=== PATIENT | male | born 1970 | race Two or more races ===

== ENCOUNTER 2019-10-01 19:44 | Emergency (ER) | payer BC ==
--- NOTE | 2019-10-01 20:27 | EDM.PDOC ---
ED HPI GENERAL MEDICAL PROBLEM - General Chief Complaint: Genitourinary Problem Stated Complaint: BLOOD IN URINE Time Seen by Provider: 10/01/19 19:54 Source of Information: Reports: Patient History Limitations: Reports: No Limitations - History of Present Illness INITIAL COMMENTS - FREE TEXT/NARRATIVE: Mr. Diez is a very pleasant 49-year-old man with no chronic medical issues, who states that he lives in [place], but is in this area for work. He states that he attempted to jump over 3 boxes between 13:00 and 15:00 yesterday afternoon, 09/30/2019. He states that he ran and jumped over them, but wound up doing the splits, striking his groin on the concrete floor. He states that he had immediate pain. He later went home, and states that he masturbated around 20:00 last night, finding blood in the semen. There was no pain, however , since then, he states that he has only been able to dribble a few drops of urine, and after he attempts to urinate, a small amount of blood emanates from the end of his penis. He has developed the sensation of bladder fullness. The patient states that he suffered a similar injury about 17 years ago. He saw his PCP, but no surgery was required. The patient's PCP is in [place]. The patient has not received an influenza vaccine this season, but is willing to receive one here. - Related Data Allergies Allergy/AdvReac Type Severity Reaction Status Date / Time No Known Allergies Allergy Verified 10/01/19 20:00 Home Meds: Home Meds Albuterol [Ventolin HFA] 1 puff INH Q4H PRN 10/01/19 [History] Past Medical History - Past Surgical History HEENT Surgical History: Reports: Oral Surgery (wisdom teeth extraction) Social & Family History - Family History Family Medical History: Noncontributory - Tobacco Use Smoking Status *Q: Current Some Day Smoker Tobacco Use Within Last Twelve Months: Smokeless Tobacco (Chews 1/3 can/day) Years of Tobacco use: 23 Packs/Tins Daily Comment: Down from 1 ppd - Caffeine Use Caffeine Use: Reports: None - Alcohol Use Alcohol Use History: Yes Alcohol Use Frequency: Rarely - Recreational Drug Use Recreational Drug Use: No - Living Situation & Occupation Living situation: Reports: , with Spouse (in [place]) 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 ED EXAM, RENAL/ - Physical Exam Exam: See Below Exam Limited By: No Limitations General Appearance: Alert, WD/WN, No Apparent Distress Eye Exam: Bilateral Eye: EOMI, Normal Inspection Ears: Normal External Exam, Hearing Grossly Normal Nose: Normal Inspection Throat/Mouth: Normal Inspection, Normal Lips, Normal Voice, No Airway Compromise Head: Atraumatic, Normocephalic Neck: Normal Inspection, Full Range of Motion Respiratory/Chest: No Respiratory Distress, Lungs Clear, Normal Breath Sounds, No Accessory Muscle Use Cardiovascular: Normal Peripheral Pulses, Regular Rate, Rhythm, No Edema, No Gallop, No JVD, No Murmur, No Rub GI/Abdominal: Normal Bowel Sounds, Soft, No Organomegaly, No Distention, No Abnormal Bruit, No Mass, Tender (suprapubic fullness, otherwise nontender) (Male) Exam: Deferred Rectal (Males) Exam: Deferred Back Exam: Normal Inspection, Full Range of Motion. No: CVA Tenderness (L), CVA Tenderness (R) Extremities: Normal Inspection, Normal Range of Motion, No Pedal Edema, Normal Capillary Refill Neurological: Alert, Oriented, Normal Cognition, No Motor/Sensory Deficits Psychiatric: Normal Affect Skin Exam: Warm, Dry, Intact, Normal Color, No Rash Course - Vital Signs Last Recorded V/S: Last Vital Signs Temp 36.9 C 10/01/19 19:56 Pulse 81 10/01/19 19:56 Resp 16 10/01/19 19:56 BP 139/93 H 10/01/19 19:56 Pulse Ox 98 10/01/19 19:56 - Orders/Labs/Meds Orders: Active Orders 24 hr Category Date Time Status Bladder Scan [RC] ASDIRECTED Care 10/01/19 20:21 Ordered UA W/MICROSCOPIC [URIN] Stat Lab 10/01/19 20:00 Ordered - Re-Assessments/Exams Free Text/Narrative Re-Assessment/Exam: 10/01/19 20:21 Given the patient's history, I'm concerned about a urethral tear. I have ordered a urinalysis, to be followed by a post-void bladder scan. 10/01/19 21:22 Notified by Linda GRAHAM that the patient was able to urinate about 50 mL of urine. His post-void bladder scan revealed 127 mL of urinary retention. The patient's urinalysis is daya/slightly cloudy in appearance. There is 3+ occult blood with 75-100 RBCs, leukocyte esterase negative with no WBCs, nitrate negative with few bacteria, and 0-5 squamous epithelial cells. 10/01/19 23:12 [facility] contacted at 22:29. Case then discussed with Dr. Maximilian Banda, Urologist at [facility], at 23:07. He agreed that the patient is likely suffering from a urethral injury. He stated that the catheter needs to be placed in order to allow the urethra to heal. He recommended that an experienced nurse attempt a single passage with a 16 [place] catheter. If she is successful, the patient follow-up with him in 2-3 days, however, if she is not, the patient will need to be transferred tonight for cystoscopy. 10/01/19 23:28 Notified by Jahaira GRAHAM that she was able to pass a catheter with no difficulty. The patient has been fitted with a leg bag. I will discharge him home, to follow -up with Dr. Banda in 2-3 days. Departure - Departure Time of Disposition: 23:30 Disposition: Home, Self-Care 01 Condition: Good Clinical Impression: Urethral injury - Discharge Information *PRESCRIPTION DRUG MONITORING PROGRAM REVIEWED*: Not Applicable *COPY OF PRESCRIPTION DRUG MONITORING REPORT IN PATIENT MAXIMUS: Not Applicable Referrals: Maximilian Banda MD [Ordering Only Provider] - Additional Instructions: You were seen in the emergency room after being unable to urinate following a groin injury. Workup in the ER included a urinalysis and a post-void bladder scan. Your urinalysis showed only blood, with no sign of an infection, and the postvoid bladder scan found 127 mL of retained urine. Based on your history, physical exam, and ER tests, you have most likely suffered an injury/tear to your urethra. The case was discussed with the [place] [facility]ist Dr. Maximilian Banda, who recommended that we place a Jeffrey catheter, which was done. Maintain the catheter and drain the bag as explained by your nurse. Make sure that the bag is below your body height when you sleep, so that urine does not backflow into your bladder. Follow-up with Dr. Banda at his office in [place] in 2-3 days. You will need to call to make an appointment. Make sure that the director of strategic marketing knows that this is a follow-up from the ER. If any other problems, please do not hesitate to return to the ER. Sepsis Event Note - Evaluation Sepsis Screening Result: No Definite Risk - Focused Exam Vital Signs: Vital Signs Temp Pulse Resp BP Pulse Ox 10/01/19 19:56 36.9 C 81 16 139/93 H 98 Date Exam was Performed: 10/01/19 Time Exam was Performed: 20:21 - My Orders Last 24 Hours: My Active Orders 10/01/19 20:00 UA W/MICROSCOPIC [URIN] Stat 10/01/19 20:21 Bladder Scan [RC] ASDIRECTED - Assessment/Plan Last 24 Hours: My Active Orders 10/01/19 20:00 UA W/MICROSCOPIC [URIN] Stat 10/01/19 20:21 Bladder Scan [RC] ASDIRECTED
[2019-10-01] MEDS ORDERED: FLU Vacc QS2019-20(6MOS+)/PF 60 MCG/0.5 ML SYRINGE IM ONE (20:30)
[2019-10-01] MEDS ORDERED: Lidocaine 2% Jelly 10 ML Urojet ONE (23:17)
[2019-10-01] MEDS ORDERED: Lidocaine 2% Jelly 10 ML Urojet MUCMEM ONE (23:18)
== END 2019-10-01 23:51 | disposition home or self-care (01) ==
LOC: JD.ED 19:44
DX: S37.30XA Unspecified injury of urethra, initial encounter (principal); F17.210 Nicotine dependence, cigarettes, uncomplicated; F17.220 Nicotine dependence, chewing tobacco, uncomplicated; Z23 Encounter for immunization; W22.8XXA Striking against or struck by other objects, initial encounter; Y93.89 Activity, other specified
CPT/HCPCS: 51702; 51798; 81001; 90686; 99283; 99284-25; G0008

== ENCOUNTER 2019-10-02 19:19 | Emergency (ER) | payer BC ==
--- NOTE | 2019-10-02 19:42 | EDM.PDOC ---
ED HPI GENERAL MEDICAL PROBLEM - General Chief Complaint: Genitourinary Problem Stated Complaint: PAINFUL TO URINATE Time Seen by Provider: 10/02/19 19:28 Source of Information: Reports: Patient History Limitations: Reports: No Limitations - History of Present Illness INITIAL COMMENTS - FREE TEXT/NARRATIVE: 49-year-old male presents to the ED with constant feeling of need to void in spite of having a Jeffrey catheter placed earlier today. Presented to the ED due to blood in his semen and then inability to void. All of this occurred after a radical type injury between 1315 hours the day prior. That he did injure his scrotum testicles and perineum. Last evening after masturbation he appreciated blood in his urine and then difficulty and pain with voiding. At present since the Jeffrey catheter was placed earlier this morning or late last night he has continuous feeling of need to void and is voiding around the catheter. It was felt that he likely had a urethral tear likely anterior to the prostate. The catheter was placed uneventfully with the aid of a Urojet last evening. History suggests he is experiencing severe bladder spasms since Jeffrey catheter was placed. Onset: Today Onset Date: 10/02/19 (As constant feeling of need to void with loss of urine around the catheter since placement late last night.) Duration: Hour(s):, Getting Worse Location: Reports: Other (Constant pain and feeling of need to void.) Quality: Reports: Burning, Other Severity: Severe Improves with: Reports: None Worsens with: Reports: None Context: Reports: Trauma (Straddle type injury day before yesterday to the perineum and scrotum.). Denies: Activity, Exercise, Lifting, Sick Contact Associated Symptoms: Denies: Confusion, Chest Pain, Cough, cough w sputum Treatments TITLE INSURANCE AGENT: Reports: Other (see below) Groin Pain Score (Numeric/FACES): 6 - Related Data Allergies Allergy/AdvReac Type Severity Reaction Status Date / Time No Known Allergies Allergy Verified 10/02/19 19:34 Home Meds: Home Meds Albuterol [Ventolin HFA] 1 puff INH Q4H PRN 10/01/19 [History] Past Medical History - Past Health History Medical/Surgical History: Denies Medical/Surgical History - Past Surgical History HEENT Surgical History: Reports: Oral Surgery Social & Family History - Family History Family Medical History: Noncontributory - Tobacco Use Smoking Status *Q: Current Every Day Smoker Years of Tobacco use: 29 Packs/Tins Daily: 0.1 - Caffeine Use Caffeine Use: Reports: None - Living Situation & Occupation Living situation: Reports: , with Spouse (in [place]) 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) ED ROS GENERAL - Review of Systems Review Of Systems: See Below Constitutional: Reports: No Symptoms HEENT: Reports: No Symptoms Respiratory: Reports: No Symptoms Cardiovascular: Reports: No Symptoms, Palpitations GI/Abdominal: Reports: Abdominal Pain (Suprapubic abdominal discomfort.) : Reports: Frequency, Urgency, Other (Severe dysuria and losing urine around the Jeffrey catheter due to bladder spasms.) Musculoskeletal: Reports: No Symptoms Skin: Reports: No Symptoms Neurological: Reports: No Symptoms Psychiatric: Reports: No Symptoms Hematologic/Lymphatic: Reports: No Symptoms Immunologic: Reports: No Symptoms ED EXAM, RENAL/ - Physical Exam Exam: See Below Exam Limited By: No Limitations General Appearance: Alert, WD/WN, Moderate Distress (Patient is in significant discomfort. He can hardly hold still due to pain in the pelvis and penis.) GI/Abdominal: Normal Bowel Sounds, Soft, Non-Tender, No Organomegaly, No Abnormal Bruit, No Mass, Pelvis Stable (Male) Exam: Other (Drainage bag contains dark urine but no gross hematuria. The catheter appears to be in normal position. Note he is leaking urine due to bladder spasms around the Jeffrey catheter. His underclothes are soaked with urine.) Back Exam: Normal Inspection, Full Range of Motion. No: CVA Tenderness (L), CVA Tenderness (R) Extremities: Normal Inspection, Normal Range of Motion, Non-Tender Neurological: Alert, Oriented, CN II-XII Intact, Normal Cognition, Normal Gait Psychiatric: Anxious Skin Exam: Warm, Dry, Intact, Normal Color, No Rash Course - Vital Signs Last Recorded V/S: Last Vital Signs Temp 36.0 C 10/02/19 19:31 Pulse 90 10/02/19 19:31 Resp 16 10/02/19 19:31 BP 152/87 H 10/02/19 19:31 Pulse Ox 97 10/02/19 19:31 - Orders/Labs/Meds Orders: Active Orders 24 hr Category Date Time Status Remove Jeffrey Catheter [Urinary Catheter Removal] [RC] Care 10/02/19 19:41 Active Per Unit Routine Labs: Laboratory Tests 10/02/19 Range/Units 19:45 Urine Color Dark yellow (Yellow) Urine Appearance Slt cloudy H (Clear) Urine pH 6.0 (5.0-8.0) Ur Specific [place] > or = 1.030 (1.005-1.030) Urine Protein 2+ H (Negative) Urine Glucose (UA) Negative (Negative) Urine Ketones Negative (Negative) Urine Occult Blood 3+ H (Negative) Urine Nitrite Negative (Negative) Urine Bilirubin Negative (Negative) Urine Urobilinogen 0.2 (0.2-1.0) Ur Leukocyte Esterase Negative (Negative) Urine RBC 40-50 H (0-5) /hpf Urine WBC 0-5 (0-5) /hpf Ur Squamous Epith Cells 0-5 (0-5) /hpf Amorphous Sediment Moderate H (NOT SEEN) /hpf Urine Bacteria Few (FEW) /hpf Urine Mucus Few (FEW) /hpf Meds: Medications Discontinued Medications Generic Name Dose Route Start Last Admin Trade Name Freq PRN Reason Stop Dose Admin Levofloxacin 500 mg 10/02/19 20:20 Levaquin PO 10/02/19 20:21 ONETIME ONE - Radiology Interpretation Free Text/Narrative:: 49-year-old male presents to the ED with problems with his Jeffrey catheter was placed late last evening. He shouldn't is experiencing severe bladder spasms with loss of urine around the Jeffrey catheter soaking his clothing he states more or less since the catheter was placed last evening. Further history suggests that he suffered a straddle injury to his scrotum and perineum the day prior similar between 1300 and 1500 hrs. Last evening he appreciated acute hematospermia with bright red blood and then bleeding per urethra. Experienced difficulty voiding. Was felt that he likely suffered a partial tear of his prostatic urethra upon consultation with by Dr. Jean-Baptiste who attended him last evening. It was felt that a Jeffrye catheter should be placed if it could be placed uneventfully and upon onetime insertion to allow the prostatic urethra to heal. Of note this history obtained after I had ordered the Jeffrey catheter removed. - Re-Assessments/Exams Free Text/Narrative Re-Assessment/Exam: 10/02/19 20:26 patient has voided and has no further pain. The urinalysis still reveals significant hematuria with 40-50 red blood cells per per field and no signs of any infection. He refuses to have the Jeffrey replaced. advised that if he has a torn urethra he will end up seeing urology services he has to travel to [facility] to the emergency department if he has obvious gross hematuria involvement of any fever chills or inability to void. Since he has had in and out catheterization within 24 hours I did provide him with Levaquin 500 mg tablet once orally as prophylaxis against infection. Departure - Departure Time of Disposition: 20:13 Disposition: Home, Self-Care 01 Condition: Fair Clinical Impression: Jeffrey catheter problem Qualifiers: Encounter type: initial encounter Qualified Code(s): T83.9XXA - Unspecified complication of genitourinary prosthetic device, implant and graft, initial encounter Hematuria Qualifiers: Hematuria type: asymptomatic microscopic Qualified Code(s): R31.21 - Asymptomatic microscopic hematuria - Discharge Information *PRESCRIPTION DRUG MONITORING PROGRAM REVIEWED*: Not Applicable *COPY OF PRESCRIPTION DRUG MONITORING REPORT IN PATIENT MAXIMUS: Not Applicable Instructions: Hematuria, Adult Referrals: PCP,None [Primary Care Provider] - Forms: ED Department Discharge Additional Instructions: Evaluation the emergency room due to problems encountered with Jeffrey catheter that was placed last evening. The history suggests a straddle type injury with injury to the scrotum and perineum which is the between the anus and the scrotum. Was felt that he likely had a partial tear of the urethra which is the tube that drains the urine from the bladder in front of the prostate gland. The fact that there was blood in your semen and then blood in the urine suggests that there was an injury to this area likely a partial tear. The Jeffrey catheter was placed uneventfully in the hopes that this would allow the tube to heal on its own unfortunately you have developed nothing but problems with pain in constant feeling of need to urinate since the catheter was placed in leakage of urine. Therefore the tube was removed and you're able to void easily and completely. He would need to return to medical care if you develop any fever chills nausea vomiting or increased lower abdominal pain. Also of course she would need to return if you are unable to pass your urine normally. If you develop further problems with blood in the urine or inability to pass your urine you need to travel to [facility] emergency room to see a specialist in this area i.e. a urologist. Dr. Guthrie was health promotion officer last night and knows about your case. Sepsis Event Note - Evaluation Sepsis Screening Result: No Definite Risk - Focused Exam Vital Signs: Vital Signs Temp Pulse Resp BP Pulse Ox 10/02/19 19:31 36.0 C 90 16 152/87 H 97 Date Exam was Performed: 10/02/19 Time Exam was Performed: 20:29 - My Orders Last 24 Hours: My Active Orders 10/02/19 19:41 Remove Jeffrey Catheter [Urinary Catheter Removal] [RC] Per Unit Routine - Assessment/Plan Last 24 Hours: My Active Orders 10/02/19 19:41 Remove Jeffrey Catheter [Urinary Catheter Removal] [RC] Per Unit Routine
[2019-10-02] MEDS ORDERED: Levofloxacin 250 MG Tab PO ONE (20:20)
== END 2019-10-02 20:31 | disposition home or self-care (01) ==
LOC: JD.ED 19:19
DX: T83.9XXA Unspecified complication of genitourinary prosthetic device, implant and graft, initial encounter (principal); R31.21 Asymptomatic microscopic hematuria; F17.210 Nicotine dependence, cigarettes, uncomplicated
CPT/HCPCS: 81001; 99283; A9270